=== PATIENT | female | born 1950 | race American Indian/Alaskan Native ===

== ENCOUNTER 2019-07-17 22:16 | Emergency (ER) | payer MEDICARE, OTHER ==
--- NOTE | 2019-07-17 22:35 | Emergency Department Report ---
ED CPR HPI - General Stated Complaint: CARDIAC ARREST Source: family Mode of arrival: Stretcher Limitations: Altered Mental Status - History of Present Illness Initial Comments: patient was last seen by sister around 900 pm in kitchen making a salad, sister went back to kitchen around 930 and found her on the floor, unresponsive, pulseless. EMS were called, but sister didn't do chest compression but did mouth to mouth breathing. EMS arrived at 940 and started chest compression, patient was asystole on monitor, received 4 rounds of epi on the way to ER. H/O cardiac disease. Upon ER presentation, ACLS was in progress, patient had superficial right side of head bleeding abrasion. Complaint: found unresponsive, stopped breathing -: minute(s) Place: home ED Review of Systems ROS: Stated complaint: CARDIAC ARREST Other details as noted in HPI Comment: Unobtainable due to pts medical conditions ED Past Medical Hx - Family History Family history: CAD/GA ED Physical Exam - General Limitations: Altered Mental Status, Physical Limitation General appearance: other (unresponsive) - Head Head exam: Present: other (right sided temporal abrasion) - Eye Eye exam: Present: other (exosphthalmos bilat) Pupils: Present: other (fixed and dilated) - ENT ENT exam: Present: other (dry bloody nose, intubated) - Neck Neck exam: Present: normal inspection - Respiratory Respiratory exam: Present: other (bag ventillation) - Cardiovascular Cardiovascular Exam: Present: other (asystole) - GI/Abdominal GI/Abdominal exam: Present: distended - Neurological Exam Neurological exam: Present: other (unresponsive) ED Medical Decision Making - Medical Decision Making received epi x 3, calcium chloride, amp of bicarb, remained asystole, no spontaneous breath, no pulse, pupils fixed and dilated, body cold, no minute signs of life. Time of 2227. Critical care attestation.: If time is entered above; I have spent that time in minutes in the direct care of this critically ill patient, excluding procedure time. ED Disposition Clinical Impression: Cardiac arrest Disposition: DC-20 Is pt being admited?: No Does the pt Need Aspirin: No Condition: Stable Referrals: JOSE FISH MD [Primary Care Provider] - 3-5 Days
[2019-07-17] MEDS ORDERED: CALCIUM CHLORIDE IV ONE (23:00)
[2019-07-17] MEDS ORDERED: ADRENALIN ONE (23:00)
== END 2019-07-18 05:23 ==
LOC: ED 22:16
DX: I46.9 Cardiac arrest, cause unspecified (principal)
CPT/HCPCS: 92950; 99285; J0171